=== PATIENT | female | born 1980 | race Caucasian/White ===

== ENCOUNTER 2016-08-28 12:32 | Emergency (ER) | payer SELFPAY | END 2016-08-28 12:48 | disposition left against medical advice (07) | LOC: EDSEX → CED 12:32 | DX: M25.562 Pain in left knee (principal); M79.662 Pain in left lower leg; M79.89 Other specified soft tissue disorders; R42 Dizziness and giddiness; Z53.8 Procedure and treatment not carried out for other reasons ==